=== PATIENT | female | born 1980 | race Hispanic/Latino ===

== ENCOUNTER 2021-12-08 15:06 | Inpatient (IN) | payer MEDICAID, OTHER ==
[~2021-12-08] VITALS: Ht 154.9 cm; Wt 59.9 kg
[~2021-12-08 15:06] MED LIST: PREN-64 PO
[2021-12-08] MEDS ORDERED: KETOROLAC 15MG/ML VIAL (15MG/ML) IV ONE (15:30)
[2021-12-08] MEDS ORDERED: 0.9%NACL 1000ML 1,000 ML IV ONE (15:30)
[2021-12-08] MEDS ORDERED: ONDANSETRON 4MG INJ IVP ONE (15:30)
[2021-12-08] MEDS ORDERED: MORPHINE 4 MG SYG IVP ONE (15:30)
[2021-12-08 15:35] LABS: BASOPHILS % (AUTO) 0.3 % (0.0-5.0); EOSINOPHILS % (AUTO) 0.1 % (0.0-8.0); HEMATOCRIT 41.3 % (36-48); LYMPHOCYTES % (AUTO) 7.1 % (21.0-51.0); MEAN CORPUSCULAR HEMOGLOBIN 21.8 pg (27.0-33.0); MEAN CORPUSCULAR HGB CONC 29.5 g/dL (32.0-36.0); MEAN CORPUSCULAR VOLUME 73.8 fL (79-99); MONOCYTES % (AUTO) 7.9 % (3.0-13.0); PLATELET COUNT (AUTO) 305 K/uL (130-400); RED CELL DISTRIBUTION WIDTH 15.7 % (11.0-15.5); WHITE BLOOD COUNT (AUTO) 24.1 K/uL (4.8-10.8)
[2021-12-08 15:47] LABS: CREATININE 0.6 mg/dL (0.5-1.5); POTASSIUM 3.5 mmol/L (3.5-5.1)
[2021-12-08 15:51] LABS: ALBUMIN 4.1 g/dL (3.5-5.0); BILIRUBIN,TOTAL 0.7 mg/dL (0.2-1.0); TOTAL PROTEIN, SERUM 8.8 g/dL (6.0-8.3)
[2021-12-08 15:52] LABS: APPEARANCE,URINE Turbid (CLEAR); BILIRUBIN,URINE Small (NEGATIVE); COLOR,URINE Dark Yellow (YELLOW); GLUCOSE, URINE (UA) Negative (NEGATIVE); KETONES,URINE >=160 mg/dL (NEGATIVE); LEUKOCYTE ESTERASE ,URINE Trace (NEGATIVE); NITRATE,URINE Negative (NEGATIVE); OCCULT BLOOD,URINE Large (NEGATIVE); PROTEIN,URINE POS 2+ mg/dL (NEGATIVE)
[2021-12-08 15:55] LABS: HCG,QUAL RESULT NEGATIVE (NEGATIVE)
[2021-12-08 16:05] LABS: BACTERIA,URINE Few /HPF (None Seen); MUCUS,URINE Many LPF (None Seen); SQUAMOUS EPITHELIAL CELL,UR Moderate /HPF (0-2)
[2021-12-08] MEDS: ZOSYN 3.375GM +NS 50ML IV SCH ×2 (16:30→23:55)
[2021-12-08] MEDS ORDERED: ZOSYN 3.375GM+NS 50ML 50 ML ONE (16:32)
[2021-12-08] MEDS ORDERED: ACETAMINOPHEN 325 MG TAB PO PRN ×2 (17:00)
[2021-12-08] MEDS ORDERED: MORPHINE 2 MG SYG IV PRN (17:00)
[2021-12-08] MEDS ORDERED: ONDANSETRON 4MG INJ IV PRN (17:00)
[2021-12-08] MEDS: 0.9%NACL 1000ML 1,000 ML IV SCH (18:20)
[2021-12-08 18:43] VITALS: BP 143/51
[2021-12-08] MEDS: FAMOTIDINE 20MG VIAL IV SCH (20:08)
[2021-12-08 20:11] VITALS: BP 132/70
[2021-12-08] MEDS ORDERED: ZOSYN 3.375GM+NS 50ML 50 ML IV SCH (21:00)
[2021-12-08 23:59] VITALS: BP 130/68
[2021-12-09] MEDS: 0.9%NACL 1000ML 1,000 ML IV SCH ×4 (02:23→22:29)
[2021-12-09] MEDS: KETOROLAC 15MG/ML VIAL (15MG/ML) IV PRN ×3 (03:19→21:07)
[2021-12-09 03:53] VITALS: BP 127/67
[2021-12-09 05:22] LABS: BASOPHILS % (AUTO) 0.3 % (0.0-5.0); EOSINOPHILS % (AUTO) 0.1 % (0.0-8.0); HEMATOCRIT 33.8 % (36-48); MEAN CORPUSCULAR HEMOGLOBIN 21.8 pg (27.0-33.0); MEAN CORPUSCULAR HGB CONC 28.7 g/dL (32.0-36.0); MEAN CORPUSCULAR VOLUME 76.1 fL (79-99); MONOCYTES % (AUTO) 8.3 % (3.0-13.0); NEUTROPHILS % (AUTO) 83.6 % (40.0-77.0); PLATELET COUNT (AUTO) 239 K/uL (130-400); RED BLOOD CELL COUNT(AUTO) 4.44 MIL/uL (4.00-5.50); RED CELL DISTRIBUTION WIDTH 15.5 % (11.0-15.5); WHITE BLOOD COUNT (AUTO) 17.6 K/uL (4.8-10.8)
[2021-12-09 05:28] LABS: INR 1.1 (0.85-1.15); PROTHROMBIN TIME 11.9 SEC (9.6-11.6)
[2021-12-09 05:30] LABS: PARTIAL THROMBOPLASTIN TIME 32.6 SEC (26.3-35.5)
[2021-12-09 05:39] LABS: BILIRUBIN,TOTAL 0.7 mg/dL (0.2-1.0); CREATININE 0.5 mg/dL (0.5-1.5); POTASSIUM 3.4 mmol/L (3.5-5.1); TOTAL PROTEIN, SERUM 6.5 g/dL (6.0-8.3)
[2021-12-09 06:51] LABS: ERYTHROCYTE SEDIMENTATION RATE 20 MM/HR (0-20)
[2021-12-09 07:30] VITALS: BP 126/68
[2021-12-09] MEDS: FAMOTIDINE 20MG VIAL IV SCH ×2 (08:43→20:13)
[2021-12-09] MEDS: ZOSYN 3.375GM +NS 50ML IV SCH ×2 (08:43→16:41)
[2021-12-09 11:48] VITALS: BP 127/76
[2021-12-09] MEDS ORDERED: LIDOCAINE HCL-MPF 1% 2ML VIAL IV PRN (12:00)
[2021-12-09] MEDS ORDERED: POTASSIUM CHLORIDE 20MEQ/100ML 100 ML IV PRN (12:00)
[2021-12-09] MEDS: POTASSIUM CHLORIDE 10% ELIXIR 20 MEQ/15 ML UDCUP PO PRN ×2 (15:27→17:09)
[2021-12-09 16:00] VITALS: BP 125/71
[2021-12-09 20:12] VITALS: BP 133/73
[2021-12-09 23:28] VITALS: BP 121/68
[2021-12-10] VITALS (20 sets, daily range): BP systolic 110–143; BP diastolic 57–80
[2021-12-10] MEDS: ZOSYN 3.375GM +NS 50ML IV SCH ×3 (00:12→16:30)
[2021-12-10] MEDS: 0.9%NACL 1000ML 1,000 ML IV SCH ×3 (02:34→19:00)
[2021-12-10 05:06] LABS: HEMATOCRIT 32.4 % (36-48); MEAN CORPUSCULAR HEMOGLOBIN 22.1 pg (27.0-33.0); MEAN CORPUSCULAR HGB CONC 29.6 g/dL (32.0-36.0); MEAN CORPUSCULAR VOLUME 74.5 fL (79-99); RED BLOOD CELL COUNT(AUTO) 4.35 MIL/uL (4.00-5.50); RED CELL DISTRIBUTION WIDTH 15.7 % (11.0-15.5); WHITE BLOOD COUNT (AUTO) 17.9 K/uL (4.8-10.8)
[2021-12-10 05:13] LABS: CREATININE 0.5 mg/dL (0.5-1.5); POTASSIUM 3.7 mmol/L (3.5-5.1)
[2021-12-10] MEDS: KETOROLAC 15MG/ML VIAL (15MG/ML) IV PRN (06:39)
[2021-12-10] MEDS: FAMOTIDINE 20MG VIAL IV SCH ×2 (09:13→21:23)
[2021-12-10] MEDS ORDERED: LIDOCAINE PF 100MG/5ML (2%) SYRINGE 5ML ONE (17:10)
[2021-12-10] MEDS ORDERED: ONDANSETRON 4MG INJ ONE (17:10)
[2021-12-10] MEDS ORDERED: PROPOFOL 10 MG/ML 20ML VIAL IV ONE (17:10)
[2021-12-10] MEDS ORDERED: SUCCINYLCHOLINE CHLORIDE 20 MG/ML 10 ML VIAL ONE (17:10)
[2021-12-10] MEDS ORDERED: MIDAZOLAM HCL 1 MG/ML 2ML VIAL ONE (17:11)
[2021-12-10] MEDS ORDERED: ROCURONIUM 10MG/1ML SYR 10 MG/ML ML ONE (17:11)
[2021-12-10] MEDS ORDERED: FENTANYL CITRATE PF 50 MCG/1 ML 2ML VIAL ONE (17:11)
[2021-12-10] MEDS ORDERED: BUPIVACAINE/PF 0.5% 10ML VIAL ONE (17:26)
[2021-12-10] MEDS ORDERED: GLYCOPYRROLATE 1 MG/5 ML SYRINGE ONE (18:20)
[2021-12-10] MEDS ORDERED: NEOSTIGMINE 5MG/5ML SYR IV ONE (18:21)
[2021-12-10] MEDS ORDERED: MEPERIDINE-PF 25 MG/ML SYG ONE (18:48)
[2021-12-10] MEDS ORDERED: MEPERIDINE-PF 25 MG/ML SYG IVP SCH (19:00)
[2021-12-11] VITALS: BP 135/63
[2021-12-11] MEDS: ZOSYN 3.375GM +NS 50ML IV SCH ×2 (00:48→09:19)
[2021-12-11 04:00] VITALS: BP 121/69
[2021-12-11 04:48] LABS: HEMATOCRIT 33.5 % (36-48); MEAN CORPUSCULAR HEMOGLOBIN 22.1 pg (27.0-33.0); MEAN CORPUSCULAR HGB CONC 29.6 g/dL (32.0-36.0); MEAN CORPUSCULAR VOLUME 74.9 fL (79-99); RED BLOOD CELL COUNT(AUTO) 4.47 MIL/uL (4.00-5.50); RED CELL DISTRIBUTION WIDTH 15.8 % (11.0-15.5); WHITE BLOOD COUNT (AUTO) 13.9 K/uL (4.8-10.8)
[2021-12-11 05:02] LABS: CREATININE 0.4 mg/dL (0.5-1.5); POTASSIUM 3.5 mmol/L (3.5-5.1)
[2021-12-11] MEDS: 0.9%NACL 1000ML 1,000 ML IV SCH (05:45)
[2021-12-11] MEDS ORDERED: MORPHINE 4 MG SYG IVP PRN (06:00)
[2021-12-11] MEDS ORDERED: TRAMADOL HCL 50 MG TABLET PO PRN (06:00)
[2021-12-11] MEDS: POTASSIUM CHLORIDE 10% ELIXIR 20 MEQ/15 ML UDCUP PO PRN (06:18)
[2021-12-11 07:30] VITALS: BP 118/62
[2021-12-11] MEDS ORDERED: AMOX1TAB16 PO (08:11)
[2021-12-11] MEDS ORDERED: GABAPENTIN 100 MG CAPSULE PO SCH (09:00)
[2021-12-11] MEDS: FAMOTIDINE 20MG VIAL IV SCH (09:18)
[2021-12-11 11:00] VITALS: BP 120/65
[2021-12-11 11:00] LABS: ALBUMIN 2.7 g/dL (3.5-5.0); BILIRUBIN,TOTAL 0.4 mg/dL (0.2-1.0); CREATININE 0.5 mg/dL (0.5-1.5); POTASSIUM 3.7 mmol/L (3.5-5.1); TOTAL PROTEIN, SERUM 6.8 g/dL (6.0-8.3)
== END 2021-12-11 15:00 | disposition home or self-care (01) | DRG 418 ==
LOC: EDH 15:06 → EDHIP 15:07 → 3AH 18:39
PROVIDERS: ADMIT Hospitalist; ATTEND Hospitalist
PROC: 0FT44ZZ Resection of Gallbladder, Percutaneous Endoscopic Approach (ICD-10-PCS; principal; 2021-12-10 17:22)
DX: K80.00 Calculus of gallbladder with acute cholecystitis without obstruction (principal); N39.0 Urinary tract infection, site not specified; F17.200 Nicotine dependence, unspecified, uncomplicated; K66.0 Peritoneal adhesions (postprocedural) (postinfection); Z20.822 Contact with and (suspected) exposure to COVID-19; D72.829 Elevated white blood cell count, unspecified; Z82.49 Family history of ischemic heart disease and other diseases of the circulatory system; Z82.5 Family history of asthma and other chronic lower respiratory diseases; Z82.0 Family history of epilepsy and other diseases of the nervous system; Z83.3 Family history of diabetes mellitus; Z82.3 Family history of stroke
CPT/HCPCS: 36415; 71045; 76705; 80048; 80053; 81001; 81025; 83690; 84145; 85025; 85027; 85610; 85651; 85730; 87040; 87088; 87635; G0378; J0330; J1885; J2001; J2175; J2250; J2270; J2405; J2543; J2704; J2710; J3010; J3490; J7030